=== PATIENT | female | born 1945 | race Caucasian/White ===

== ENCOUNTER → 2016-10-03 | Outpatient (REF) | payer MEDICARE | LOC: M LAB REF 14:00 | PROVIDERS: ATTEND Ophthalmology | DX: H02.834 Dermatochalasis of left upper eyelid (principal); H02.831 Dermatochalasis of right upper eyelid ==

== ENCOUNTER → 2016-12-15 | Outpatient (CLI) | payer MEDICARE ==
--- NOTE | 2016-12-15 10:05 | REPMRS ---
Patient History The patient states she had a clinical breast exam in 12/2016. Patient is postmenopausal. Family history of breast cancer in sister at age 60, breast cancer in 2 maternal cousins under age 50, and breast cancer in daughter at age 48. Benign cyst aspiration of the left breast. Digital Woman Screen Mammo: December 15, 2016 - Exam #: [id number] Bilateral CC and MLO view(s) were taken. Technologist: Hannah Sierra, Technologist Prior study comparison: December 12, 2015, digital woman screen mammo performed at [facility]. November 17, 2014, digital woman screen mammo performed at [facility]. FINDINGS: There are scattered fibroglandular densities. There has been no change in the appearance of the mammogram from the prior studies. There is a mild amount of scattered fibroglandular density which is fairly symmetric. There is no interval development of dominant mass, architectural distortion, or clustered microcalcification suggestive of malignancy. ASSESSMENT: BI-RADS/ACR category 1 mammogram. Negative. Recommendation Routine screening mammogram in 1 year (for women over age 40). This mammogram was interpreted with the aid of an FDA-approved computer-aided dectection system. Electronically Signed By: Jc Brandon MD 12/15/16 [id number]
== END ==
LOC: M WHC 08:16
PROVIDERS: ATTEND Nurse Practitioner Family
DX: Z01.419 Encounter for gynecological examination (general) (routine) without abnormal findings (principal); Z12.31 Encounter for screening mammogram for malignant neoplasm of breast; Z78.0 Asymptomatic menopausal state; Z92.89 Personal history of other medical treatment; Z80.3 Family history of malignant neoplasm of breast; Z12.12 Encounter for screening for malignant neoplasm of rectum; N95.2 Postmenopausal atrophic vaginitis; Z28.21 Immunization not carried out because of patient refusal
CPT/HCPCS: 82270; G0101; G0202; G0463

== ENCOUNTER 2017-10-21 05:52 | Day surgery (SDC) | payer MEDICARE ==
[2017-10-21] MEDS: TRIAMCINOLONE PRES FR 40 MG/ML 1ML(TRIESENCE)(OR EYE ONLY)(J3300 PER 1MG) As Ordered (06:43)
[2017-10-21] MEDS: LIDOCAINE 1% SDV 5 ML VIAL As Ordered (06:44)
[2017-10-21] MEDS: MOXIFLOXACIN IN BSS 0.25MG/0.25ML INTRACAMERAL INJ (OR EYE ONLY)(J2280) As Ordered (06:44)
[2017-10-21] MEDS: HEALON DUET (HEALON 10MG/ML 0.55ML & HEALON ENDOCOAT 30MG/ML 0.85ML) As Ordered (06:45)
[2017-10-21] MEDS ORDERED: TETRACAINE 0.5% OPHTH SOLN 4ML As Ordered (06:50)
[2017-10-21] MEDS: LIDOCAINE 3.5 % 1ML OPHTH TOPICAL GEL OU (06:50)
[2017-10-21] MEDS: POVIDONE-IODINE 5% OPHTH PREP SOL 30ML As Ordered (07:38)
[2017-10-21] MEDS: LIDOCAINE 2% W/EPIN INJ 20ML **PRES FREE As Ordered (07:39)
[2017-10-21] MEDS ORDERED: MIDAZOLAM INJ 2 MG/2 ML VIAL (J2250) As Ordered (07:40)
[2017-10-21] MEDS ORDERED: fentaNYL 100 MCG/2 ML INJECTION (J3010) As Ordered (07:40)
[2017-10-21] MEDS ORDERED: PROPOFOL 200 MG/20 ML VIAL As Ordered (07:40)
[2017-10-21] MEDS: TOBRADEX OPHTH OINT 3.5 GM As Ordered (07:59)
[2017-10-21] MEDS: SODIUM BICARBONATE 8.4% INJ 50MEQ 50 ML VIAL As Ordered (08:00)
== END 2017-10-21 08:29 | disposition home or self-care (01) ==
LOC: M SDC 05:52
DX: H02.411 Mechanical ptosis of right eyelid (principal); G47.30 Sleep apnea, unspecified; Z96.1 Presence of intraocular lens; Z90.710 Acquired absence of both cervix and uterus
CPT/HCPCS: 67904

== ENCOUNTER → 2017-12-16 | Outpatient (CLI) | payer MEDICARE | LOC: M WHC 11:12 | DX: Z12.31 Encounter for screening mammogram for malignant neoplasm of breast (principal); Z78.0 Asymptomatic menopausal state; Z92.89 Personal history of other medical treatment; Z80.3 Family history of malignant neoplasm of breast | CPT/HCPCS: 77067 ==

== ENCOUNTER → 2018-12-17 | Outpatient (CLI) | payer MEDICARE ==
--- NOTE | 2018-12-17 12:42 | REP ---
BILATERAL SCREENING DIGITAL MAMMOGRAM WITH 3D TOMOSYNTHESIS: There are no palpable abnormalities or other breast complaints. The the patient states she had a clinical breast examination December,. The the patient states she performs self-breast examinations zero times per year. The Tyrer Cuzick Score is: 9.2% . Comparison is 11/11/2013. The breasts are heterogeneously dense, which could obscure small masses. There is no dominant mass, micro calcific cluster or architectural distortion that would indicate malignancy. There are no additional findings on 3D tomosynthesiss. There is no change from the prior study. Impression: BIRADS/ACR category 1 mammogram. Negative. Recommendation: Routine annual screening mammography. Because of the increased breast density, annual adjunctive breast MRI in addition to screening mammography is recommended. These can be performed at alternating six month intervals. This mammogram was interpreted with the aid of a FDA approved computer-aided detection system. A. Negative mammogram reports should not delay biopsy if a dominant or clinically suspicious mass is present. B. Not all breast cancers are identified by mammography or tomosynthesis. C. Adenosis and dense breasts may obscure an underlying neoplasm. Patient letter M1 dense breasts. Electronically Signed by Ho Diaz MD 12/17/2018 12:34 P
== END ==
LOC: M WHC 10:00
PROVIDERS: ATTEND Nurse Practitioner Family
DX: Z12.31 Encounter for screening mammogram for malignant neoplasm of breast (principal)

== ENCOUNTER → 2019-12-20 | Outpatient (CLI) | payer MEDICARE ==
--- NOTE | 2019-12-20 11:35 | REPMRS ---
Patient History Family history of breast cancer at age 48 in daughter, breast cancer under age 50 in maternal cousin, breast cancer under age 50 in maternal cousin, breast cancer at age 60 in sister. Benign cyst aspiration of the left breast. No Hormone Replacement Therapy Digital Woman Screen Mammo: December 20, 2019 - Exam #: [id number] Bilateral CC and MLO view(s) were taken. Technologist: Maria Guadalupe Ross, RT Prior study comparison: December 17, 2018, bilateral digital woman screen mammo performed at [facility]. December 16, 2017, bilateral digital woman screen mammo performed at [facility]. December 15, 2016, digital woman screen mammo performed at [facility]. FINDINGS: There are scattered fibroglandular densities. The Volpara volumetric breast density category is:B. There has been no change in the appearance of the mammogram from the prior studies. There is a mild amount of scattered fibroglandular density which is fairly symmetric. There is no interval development of dominant mass, architectural distortion, or grouped microcalcification suggestive of malignancy. 3-D tomosynthesis shows no additional findings. Assessment: BI-RADS/ACR category 1 mammogram. Negative Mammogram. Recommendation Routine screening mammogram of both breasts in 1 year (for women over age 40). This patient's Lifetime Breast Cancer Risk is estimated at 8.4 %. This mammogram was interpreted with the aid of an FDA-approved computer-aided dectection system. Electronically Signed By: Jc Brandon MD 12/20/19 [id number]
== END ==
LOC: M WHC 09:27
PROVIDERS: ATTEND Nurse Practitioner Family
DX: Z12.31 Encounter for screening mammogram for malignant neoplasm of breast (principal); Z80.3 Family history of malignant neoplasm of breast; Z86.018 Personal history of other benign neoplasm

== ENCOUNTER → 2020-01-10 | Outpatient (CLI) | payer MEDICARE ==
--- NOTE | 2020-01-10 17:26 | DEXAMM ---
INDICATION: Z78.0 ASYMPTOMATIC MENOPAUSAL STATE. COMPARISON: Comparison study October 11, 2010.. TECHNIQUE: Bone density was measured using dual-energy x-ray absorptionmetry (DEXA). FINDINGS: AP SPINE L1-L4 BMD 1.226 g/cm2 Young Adult T-Score 0.3 Age Matched Z-Score 2.0. LT FEMUR, TOTAL BMD 1.024 g/cm2 Young Adult T-Score 0.1 Age Matched Z-Score 2.0. LT NECK BMD 0.780 g/cm2 Young Adult T-Score -1.9 Age Matched Z-Score 0.1. RT FEMUR, TOTAL BMD 1.014 g/cm2 Young Adult T-Score 0.1 Age Matched Z-Score 1.9. RT NECK BMD 0.762 g/cm2 Young Adult T-Score -2.0 Age Matched Z-Score 0.0. IMPRESSION: There is normal bone densitometry of the spine. There is low bone density of the left hip. There is low bone density of the right hip. The density of the spine has increased 7.5% since the initial exam on October 11, 2010. The density of the left hip has decreased 7.3% since initial exam on October 11, 2010. The density of the right hip has decreased 8.9% since the initial exam on October 11, 2010. FOLLOW-UP: Recommendation for the next bone density exam: 2 years. <Electronically signed by Jc Brandon > 01/10/20 [id number]
== END ==
LOC: M WHC 12:41
PROVIDERS: ATTEND Nurse Practitioner Family
DX: M85.851 Other specified disorders of bone density and structure, right thigh (principal); M85.852 Other specified disorders of bone density and structure, left thigh; Z78.0 Asymptomatic menopausal state

== ENCOUNTER → 2020-07-04 | Outpatient (CLI) | payer MEDICARE ==
--- NOTE | 2020-07-05 16:47 | SLEEPCENT ---
NOCTURNAL POLYSOMNOGRAPHY DATE: 07/04/2020 ORDERED BY: MENA Carrasco Nocturnal polysomnography was performed for evaluation of sleep physiology in this patient with nonrestorative sleep. 7 hours and 4 minutes of data were reviewed. There were 260 minutes of sleep identified. Sleep latency was normal at 22 minutes. REM sleep was somewhat delayed at 172 minutes. Sleep architecture showed fragmentation with periods of wake and poor progression. There were three REM cycles noted. Overall sleep efficiency was 62.3%. The electrocardiogram showed a sinus rhythm with an average heart rate of 75 beats per minute; rate range 65 to 95. EEG showed normal waveforms for wake and sleep. There were 290 respiratory events identified of 10 seconds in duration or greater for an apnea-hypopnea index of 66.9. The events were primarily obstructive, not exclusive to sleep stage nor position. Arousals from respiratory events occurred 6.2 times and oxygen desaturations were seen into the low 80s. There was some activity in the limb EMG leads as well, but limb movement arousal index was only 1.4. Snoring was noted over much of the test. IMPRESSION: Severe obstructive sleep apnea syndrome (G47.33), apnea-hypopnea index 66.9. RECOMMENDATION: The patient should be encouraged to return [facility]. In the interim, alcohol and sedative avoidance should be practiced and caution exercised during the operation of motor vehicles.
== END ==
LOC: M SLEEP 20:00
PROVIDERS: ATTEND Nurse Practitioner Family
DX: G47.33 Obstructive sleep apnea (adult) (pediatric) (principal); R06.83 Snoring

== ENCOUNTER → 2020-08-29 | Outpatient (CLI) | payer MEDICARE ==
--- NOTE | 2020-08-30 14:32 | SLEEPCENT ---
DATE: 08/29/2020 ORDERED BY: ANTONIO Carrasco Nocturnal polysomnography was performed for the titration of pressure therapy in this patient with severe obstructive sleep apnea syndrome, apnea-hypopnea index of 66.9. For testing, the patient was fit with a [employer]Med Airfit N20 full face mask of medium size, 4 cm of water pressure were applied to the circuit, and the lights were extinguished. Six hours and 17 minutes of data were reviewed. There were 246.5 minutes of sleep identified. Sleep latency was mildly prolonged at 46.5 minutes. REM latency was normal at 81 minutes. Sleep architecture showed some fragmentation. There were two REM cycles and periods of wake between 1:00 and 2:00 a.m. resulting in reduced sleep efficiency of 66.8%. The electrocardiogram showed a sinus rhythm with an average heart rate of 78 beats per minute. EEG showed normal waveforms for wake and sleep. Respiratory events were fully palliated with CPAP at a pressure of 10. Significant limb activity was noted, particularly late in the study. Overall limb movement arousal index on this occasion was 4.1. IMPRESSION: Obstructive sleep apnea syndrome (G47.33). RECOMMENDATION: Nightly use of pressure therapy 10 cm of water. cc: MARIE ORTIZ MD
== END ==
LOC: M SLEEP 20:00
PROVIDERS: ATTEND Nurse Practitioner Family
DX: G47.33 Obstructive sleep apnea (adult) (pediatric) (principal)

== ENCOUNTER → 2020-12-21 | Outpatient (CLI) | payer MEDICARE ==
--- NOTE | 2020-12-21 10:54 | REPMRS ---
Patient History The patient states she has not had a clinical breast exam in over a year. Family history of breast cancer at age 48 in daughter, breast cancer under age 50 in maternal cousin, breast cancer under age 50 in maternal cousin, breast cancer at age 60 in sister. Benign cyst aspiration of the left breast. No Hormone Replacement Therapy Tomosynthesis is performed. Volpara breast density is b. [facility] lifetime risk of breast cancer 7.6%. Patient states no breast complaints today. Patient has signed MRS History Sheet. Digital Woman Screen Mammo: December 21, 2020 - Exam #: [id number] Bilateral CC and MLO view(s) were taken. Technologist: Trudy Dominguez, Technologist Prior study comparison: December 20, 2019, bilateral digital woman screen mammo performed at [facility]. December 17, 2018, bilateral digital woman screen mammo performed at [facility]. FINDINGS: The breast tissue is heterogeneously dense. This may lower the sensitivity of mammography. There has been no change in the appearance of the mammogram from the prior studies. There is a moderate amount of residual fibroglandular tissue which is fairly symmetric. There is no interval development of dominant mass, areas of architectural distortion, or clustered microcalcification typical of malignancy. Assessment: BI-RADS/ACR category 1 mammogram. Negative Mammogram. Recommendation Routine screening mammogram in 1 year (for women over age 40). This mammogram was interpreted with the aid of an FDA-approved computer-aided dectection system. Electronically Signed By: Ho Newsome MD 12/21/20 [id number]
== END ==
LOC: M WHC 08:40
PROVIDERS: ATTEND Family Medicine
DX: Z12.31 Encounter for screening mammogram for malignant neoplasm of breast (principal)

== ENCOUNTER → 2022-01-30 | Outpatient (CLI) | payer MEDICARE | LOC: M WUC 12:54 | PROVIDERS: ATTEND Family Medicine | DX: I50.9 Heart failure, unspecified (principal); R06.2 Wheezing ==

== ENCOUNTER → 2022-03-27 | Outpatient (CLI) | payer MEDICARE | LOC: M WHC 14:30 | PROVIDERS: ATTEND Nurse Practitioner Family | DX: Z12.31 Encounter for screening mammogram for malignant neoplasm of breast (principal) ==

== ENCOUNTER → 2022-03-27 | Outpatient (REF) | payer MEDICARE | LOC: M PLALAB 15:58 | PROVIDERS: ATTEND Nurse Practitioner Family | DX: Z12.4 Encounter for screening for malignant neoplasm of cervix (principal) | CPT/HCPCS: 87624; G0123 ==

== ENCOUNTER → 2023-06-16 | Outpatient (CLI) | payer MEDICARE | LOC: M WHC 10:45 | PROVIDERS: ATTEND Family Medicine | DX: Z12.31 Encounter for screening mammogram for malignant neoplasm of breast (principal) ==

== ENCOUNTER → 2023-08-25 | Outpatient (CLI) | payer MEDICARE | LOC: M PLAIMG 13:37 | PROVIDERS: ATTEND Family Medicine | DX: Q24.8 Other specified congenital malformations of heart (principal) ==